=== PATIENT | male | born 1980 | race Caucasian/White ===

== ENCOUNTER 2020-01-13 21:08 | Emergency (ER) | payer MEDICAID ==
[~2020-01-13] VITALS: Ht 165.1 cm; Wt 60.3 kg
[2020-01-13 21:28] VITALS: Ht 165.1 cm; Wt 60.3 kg
[2020-01-13 23:40] VITALS: BP 110/68
== END 2020-01-13 23:40 | disposition home or self-care (01) ==
LOC: ED 21:08
DX: S42.022A Displaced fracture of shaft of left clavicle, initial encounter for closed fracture (principal); S16.1XXA Strain of muscle, fascia and tendon at neck level, initial encounter; S29.012A Strain of muscle and tendon of back wall of thorax, initial encounter; S00.432A Contusion of left ear, initial encounter; W18.2XXA Fall in (into) shower or empty bathtub, initial encounter; Y93.E1 Activity, personal bathing and showering; Y92.091 Bathroom in other non-institutional residence as the place of occurrence of the external cause; Y99.8 Other external cause status